=== PATIENT | female | born 1935 | race Caucasian/White ===

== ENCOUNTER 2023-03-30 12:10 | Outpatient (AMB) | payer MEDICARE, SELFPAY ==
--- NOTE | 2023-03-30 12:12 | MHC.OFFVIS ---
Intake Vital Signs 03/30/23 12:17 Height 5 ft 3 in Weight 171 lb BMI 30.3 Intake Visit Reasons: [employer]-Right knee pain Intake Note: Yesi is an 87 year old female who presents today as a new patient with complaints of right knee pain. Pt reports that she's been having pain since about November. She was previously seen with Robbie Castaneda at [facility] who ordered an MRI and injected the right knee. She found no relief from this injection and would like to discuss alternative therapies. Allergies No Known Allergies Allergy (Verified 03/30/23 12:22) HPI FRE[employer]-Right knee pain HPI Details Yesi is an 87 year old woman who presents for an MRI review of her right knee pain. She complains of some pain with daily activity. Her pain has been present for ~3-4 months. She reports having a walker at home that she uses occasionally. She reports having an injection done at [facility] when her MRI was ordered. She says she had no relief from this injection and wants to discuss alternative treatments She denies any falls or known injury. She says she is able to remain active and [facility] with water aerobics. Her pain has been improving in the last few weeks. She says she used to be a patient of Dr. Cook for several years. [facility] Surgical History (Updated 03/30/23 @ 12:26 by Mima Enamorado) H/O: hysterectomy Social History (Updated 03/30/23 @ 12:26 by Mima Enamorado) Patient Tobacco Use Status: Never used Tobacco Current occupational status: retired Review of Systems Const All systems reviewed & are unremarkable except as noted in HPI and below Physical Exam Vital Signs: BMI result Body Mass Index 30.3 Const General: no acute distress, alert and awake Orientation/consciousness: patient oriented x3 HEENT Head: Yes normocephalic and Yes atraumatic Eyes EOM: EOMs intact bilaterally Resp Effort & Inspection: normal respiratory effort and able to speak in complete sentences Cardio Jugular venous distension: no JVD Skin General skin exam: turgor normal Rashes: no rashes Neuro General: patient oriented x3 Extrem Other: Right Knee: Mild tenderness over medial compartment Full ROM Trace effusion - steinmans Walking comfortably Psych Appearance: grossly normal Affect: normal affect Attitude: cooperative Results Reviewed Results Reviewed: I personally reviewed relevant MR images Complex radial tear involving the posterior horn/root junction of the medial meniscus with bone marrow contusions involving the medial knee compartment Prepatellar bursitis Grade 1 MCL sprain Degenerative changes of the right knee, greatest in the medial tibiofemoral compartment. Assessment & Plan Assessment & Plan (1) Insufficiency fracture of medial condyle of femur: Code(s): M84.453A - Pathological fracture, unspecified femur, initial encounter for fracture Plan: This is an 87 year old woman with an insufficiency fracture of the right medial femoral condyle. She has some pain with daily activity, which has been improving over time. There is no intervention indicated at this time. She remains active with daily exercise and is not limited in her ADLs. She will follow up in 3 months, if her symptoms worsen. Plan Scribed for Francisco Barahona MD by Thomas Dickens, medical typist, on 03/30/23 at 1:05 PM, EST. Orders: Orders XR knee RT 2V Today M25.569 - Pain in unspecified knee XR knee standing BI Today M25.569 - Pain in unspecified knee Coding Level of Care Code New Pt Level 3 (68128) Diagnoses Insufficiency fracture of medial condyle of femur M84.453A
[2023-03-30 12:17] VITALS: BMI 30.3
== END 2023-03-30 13:16 | disposition home or self-care (01) ==
PROVIDERS: Visit Provider Orthopaedic Surgery
DX: M84.451A Pathological fracture, right femur, initial encounter for fracture (principal); S83.231A Complex tear of medial meniscus, current injury, right knee, initial encounter
CPT/HCPCS: 99203

== ENCOUNTER 2023-03-30 12:10 | Outpatient (REF) | payer MEDICARE, SELFPAY ==
--- NOTE | ~2023-03-30 | XR_ITS ---
EXAMINATION: XR AP STANDING BILATERAL KNEES XR KNEE, RIGHT CLINICAL INFORMATION: Pain in unspecified knee. COMPARISON: None available. TECHNIQUE: AP standing view of bilateral knees. Lateral and sunrise views of the right knee. FINDINGS: The bones are diffusely demineralized. RIGHT KNEE: Chondrocalcinosis in the medial and lateral compartments. Moderate joint effusion. Tiny posterior patellar and medial marginal osteophytes. Moderate medial joint space narrowing. Soft tissue calcifications are likely vascular. LEFT KNEE: Chondrocalcinosis in the medial and lateral compartments. Moderate medial joint space narrowing. Vascular calcifications in the soft tissues. There is a dominant 3.5 cm lobulated density in the soft tissues along the medial aspect of the tibia with multiple adjacent smaller radiodensities of indeterminate etiology and significance. Dedicated views of the left knee and correlation with clinical exam and history recommended for further evaluation. XR/XR knee standing BI IMPRESSION: 1. Advanced degenerative changes right knee. 2. Advanced degenerative changes on AP view of the left knee. 3. A 3.5 cm lobulated density in the soft tissues along the medial aspect of the tibia with multiple adjacent smaller radiodensities of indeterminate etiology and significance. Dedicated views of the left knee and correlation with clinical exam and history recommended for further evaluation. Additional imaging with CT scan or MRI should be considered for better visualization as these modalities are much more sensitive for detection of fracture or other underlying pathology.
--- NOTE | ~2023-03-30 | XR_ITS ---
EXAMINATION: XR AP STANDING BILATERAL KNEES XR KNEE, RIGHT CLINICAL INFORMATION: Pain in unspecified knee. COMPARISON: None available. TECHNIQUE: AP standing view of bilateral knees. Lateral and sunrise views of the right knee. FINDINGS: The bones are diffusely demineralized. RIGHT KNEE: Chondrocalcinosis in the medial and lateral compartments. Moderate joint effusion. Tiny posterior patellar and medial marginal osteophytes. Moderate medial joint space narrowing. Soft tissue calcifications are likely vascular. LEFT KNEE: Chondrocalcinosis in the medial and lateral compartments. Moderate medial joint space narrowing. Vascular calcifications in the soft tissues. There is a dominant 3.5 cm lobulated density in the soft tissues along the medial aspect of the tibia with multiple adjacent smaller radiodensities of indeterminate etiology and significance. Dedicated views of the left knee and correlation with clinical exam and history recommended for further evaluation. XR/XR knee RT 2V IMPRESSION: 1. Advanced degenerative changes right knee. 2. Advanced degenerative changes on AP view of the left knee. 3. A 3.5 cm lobulated density in the soft tissues along the medial aspect of the tibia with multiple adjacent smaller radiodensities of indeterminate etiology and significance. Dedicated views of the left knee and correlation with clinical exam and history recommended for further evaluation. Additional imaging with CT scan or MRI should be considered for better visualization as these modalities are much more sensitive for detection of fracture or other underlying pathology.
== END 2023-03-30 12:11 | disposition home or self-care (01) ==
LOC: HO.HOSX 12:10
PROVIDERS: Visit Provider Orthopaedic Surgery
DX: M84.452A Pathological fracture, left femur, initial encounter for fracture (principal)
CPT/HCPCS: 73560; 73565; 99202

== ENCOUNTER 2023-10-29 11:00 | Outpatient (AMB) | payer MEDICARE, SELFPAY ==
--- NOTE | 2023-10-29 11:03 | MHC.OFFVIS ---
Intake Intake Visit Reasons: OV - Rt Femur Insufficiency fx Intake Note: Yesi is an 88 year old female who presents today for a follow up of her right knee, she has a Right Medial Femoral Condyle Insufficiency Fracture. Patient reports that she is doing well, she has some pain when she over does it. She is doing exercises at the [facility] and is doing exercises. She complains of left shoulder pain, this has been ongoing for some time and limited ROM. She has had physical therapy for 6 months with good releif. She is asking for a physical therapy order. She also reports that she has hammer toe and is geting orthotics to correct this from a medical recruiter. Allergies No Known Allergies Allergy (Verified 03/30/23 12:22) HPI OV - Rt Femur Insufficiency fx HPI Details Yesi is an 88 year old woman who returns to discuss her insufficiency fracture of the right medial femoral condyle. In regards to her knee she says she is doing well and continues to perform exercises at home. She complains of left shoulder pain, which has been present for several months. She has done PT in the past, which she found helpful, and she would like a new PT order. PFSH Surgical History (Updated 03/30/23 @ 12:26 by EMI Norton) H/O: hysterectomy Social History (Updated 03/30/23 @ 12:26 by EMI Norton) Patient Tobacco Use Status: Never used Tobacco Current occupational status: retired Review of Systems Const All systems reviewed & are unremarkable except as noted in HPI and below Physical Exam Const General: no acute distress, alert and awake Orientation/consciousness: patient oriented x3 HEENT Head: Yes normocephalic and Yes atraumatic Eyes EOM: EOMs intact bilaterally Resp Effort & Inspection: normal respiratory effort and able to speak in complete sentences Cardio Jugular venous distension: no JVD Skin General skin exam: turgor normal Rashes: no rashes Neuro General: patient oriented x3 Extrem Other: No effusion right knee Minimal TTP MFC Psych Appearance: grossly normal Affect: normal affect Attitude: cooperative Results Reviewed Results Reviewed: 4-/5 EC ER to 35 deg bilaterally No effusion Assessment & Plan Assessment & Plan (1) Rotator cuff arthropathy of left shoulder: Code(s): M12.812 - Other specific arthropathies, not elsewhere classified, left shoulder Plan: PT for left shoulder RTC arthropathy (2) Insufficiency fracture of medial condyle of femur: Code(s): M84.453A - Pathological fracture, unspecified femur, initial encounter for fracture Plan: Improved with PT and time. Continue activity as tolerated Plan Prepared for Francisco Barahona MD by Thomas Dickens, medical assistant cardiology, on 10/29/23 at 11:10 AM, EST. Orders: Orders PT Evaluation and Treatment Today M12.812 - Other specific arthropathies, not elsewhere classified, left shoulder Coding Level of Care Code Est Pt Level 4 (87408) Diagnoses Rotator cuff arthropathy of left shoulder M12.812 Insufficiency fracture of medial condyle of femur M84.453A
== END 2023-10-29 11:39 | disposition home or self-care (01) ==
PROVIDERS: Visit Provider Orthopaedic Surgery
DX: M84.451A Pathological fracture, right femur, initial encounter for fracture (principal); M12.812 Other specific arthropathies, not elsewhere classified, left shoulder
CPT/HCPCS: 99213

== ENCOUNTER → 2023-10-29 11:00 | Outpatient (BNVA) | payer MEDICARE, SELFPAY | PROVIDERS: Visit Provider Orthopaedic Surgery | DX: M84.453D Pathological fracture, unspecified femur, subsequent encounter for fracture with routine healing (principal); M12.812 Other specific arthropathies, not elsewhere classified, left shoulder | CPT/HCPCS: 99212 ==

== ENCOUNTER 2023-12-24 10:00 | Outpatient (RCR) | payer MEDICARE, SELFPAY ==
--- NOTE | 2023-11-23 12:24 | MHC.PT.EP ---
[facility] [place] Office [place] Office [place] Office [address] [phone] F: [phone] F: [phone] F: [phone] F: [phone] Physical Therapy Plan of Care Date of Evaluation: 11/23/23 Date of Surgery: N/A Diagnosis: rotator cuff arthropathy of left shoulder (RL) Assessment: pt is an 88 y/o female presenting to physical therapy w/ referring diagnosis of rotator cuff arthropathy of left shoulder. Cervical screening done and did not seem to affect shoulder/arm symptoms. I am questioning more shoulder arthritis and potential rotator cuff insufficiency. There is a postural component to her pain as well. Impairments include pain, decreased range of motion, decreased strength, impaired functional mobility, impaired postural awareness, and altered ambulation mechanics. pt is a good candidate for skilled PT due to age, potential remediation of impairments, typical disease/condition progression and prognosis, comorbidities, and motivation. pt would benefit from skilled PT intervention to provide a tailored strengthening and stretching exercise program, functional training, gait training, postural re-training, neuromuscular re-education, modalities as needed for pain, equipment safety demonstration. Frequency and Duration: The patient will be seen 2x/wk for 4 wks Short Term Goals: pt will be I w/ HEP to promote self-management of condition. pt will improve L shoulder flexion by at least 10 degrees to promote ease in reaching for objects on higher shelves. Half-Way Goals: pt will improve L shoulder flexion and abduction strength by at least 1 MMT grade to promote ease in carrying groceries/purse. pt will report a statistically significant improvement in self-reported outcome measure, SPADI, to promote return to PLOF. Treatment Plan: Modalities to reduce pain, spasms and effusion. Manual therapy to restore motion and function. Therapeutic exercise to improve strength and flexibility. Neuromuscular re-education for posture and balance. Therapeutic activities to return to functional activities of daily living. Electronically signed by: Gissell Pierre PT, DPT Please sign and return to therapist. Thank you for your referral.
--- NOTE | 2023-12-28 15:10 | MHC.PT.DC ---
[facility] [place] Office [place] Office [place] Office [address] [facility] [phone] F: [phone] F: [phone] F: [phone] F: [phone] Physical Therapy Discharge Report Diagnosis: rotator cuff arthropathy of left shoulder (RL) Date of Surgery: N/A Date of Evaluation: 11/23/23 Date of Discharge: 12/28/23 Treatments to Date: 8 Cancellations to Date: 2 No Shows to Date: 0 Discharge Status: Improved Function Independent with HEP Patient Elected to Stop Discharge Summary: The patient overall has been reporting improved shoulder pain symptoms. She is independent with her home exercise program and feels she is ready for discharge to continue on her own. She is discharged per her request. Electronically signed by: Gissell Pierre PT, DPT Please sign and return to therapist. Thank you for your referral.
== END 2023-12-28 15:11 | disposition home or self-care (01) ==
LOC: HO.PT 10:00
PROVIDERS: PCP Internal Medicine; Visit Provider Orthopaedic Surgery
DX: M12.812 Other specific arthropathies, not elsewhere classified, left shoulder (principal)
CPT/HCPCS: 97110; 97140; 97162

== ENCOUNTER 2024-09-01 14:00 | Outpatient (RCR) | payer MEDICARE, SELFPAY ==
--- NOTE | 2024-08-02 12:12 | MHC.PT.EP ---
[facility] [place] Office [place] Office [place] Office [address] [phone] F: [phone] F: [phone] F: [phone] F: [phone] Physical Therapy Plan of Care Date of Evaluation: 08/01/24 Date of Surgery: Diagnosis: This is a 88 yo female presenting to skilled PT with a script for pathological fracture of medial condyle femur. Assessment: This is a 88 yo female presenting to skilled PT with a script for pathological fracture of medial condyle femur. Patient reporting ongoing knee pain however reports that she is really here to work on her balance (does not want a TKR, sees [facility] ortho). She does endorse B knee pain at times but it is not causing her functional issues. She reports unbalanced with ambulation moreso due to age. Denies dizziness. She walks with a straight cane occasionally. 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 Assessment reveals pain that ranges from up to a 4/10 at the worst. Patient demos decreased knee and ankle ROM, strength of hips and ankles, decreased gait pattern and impaired balance as noted by DGI and Ann Marie SOPT. Based on functional limitations, impaired QOL and pain tolerance patient is a good candidate for skilled PT 2x/wk for 4wks. Frequency and Duration: The patient will be seen 2x/wk for 4wks Short Term Goals: Pt will demonstrate improved postural awareness and understanding of core engagement with supine and standing tasks without cues throughout session to improve balance safety as well as improve strength in 2 weeks. Pt will continue to reinforce precautions, sitting, standing and ADL modifications with proper body mechanics and prevent falls in 2 wks. Mcc Goals: Pt will demonstrate improved outcome measure by 5 points in 4 weeks for improved functional mobility. Pt will demonstrate ability to bend and lift WNL min to no pain for household tasks in 4 wks. Pt will be I in HEP and compliant in 4wks Pt will be able to perform sit<>stand without UE assist from varying chair heights in 4 wks Treatment Plan: Modalities to reduce pain, spasms and effusion. Manual therapy to restore motion and function. Therapeutic exercise to improve strength and flexibility. Neuromuscular re-education for posture and balance. Therapeutic activities to return to functional activities of daily living. Electronically signed by: Liudmila Gilmore PT Please sign and return to therapist. Thank you for your referral.
--- NOTE | 2024-09-30 11:31 | MHC.PT.DC ---
[facility] [place] Office [place] Office [place] Office [address] [phone] F: [phone] F: [phone] F: [phone] F: [phone] Physical Therapy Discharge Report Diagnosis: This is a 88 yo female presenting to skilled PT with a script for pathological fracture of medial condyle femur. Date of Surgery: Date of Evaluation: 08/01/24 Date of Discharge: 09/30/24 Treatments to Date: 6 Cancellations to Date: 0 No Shows to Date: 0 Discharge Status: Achieved Goals Improved Function Independent with HEP Patient Elected to Stop Discharge Summary: Patient still struggles with getting out of the chair however with slight tactile cue at the upper back she is able to complete this without her hands. We did talk about the safety of using her hands and assessing surfaces as well as adapting her house. She has a good HEP to continue on her own and does not have any pain. She had one more scheduled appointment however was hospitalized and her chart here was closed after 30 days of not being at the facility. Electronically signed by: Liudmila Gilmore PT Please sign and return to therapist. Thank you for your referral.
== END 2024-09-30 11:31 | disposition home or self-care (01) ==
LOC: HO.PTCHIC 14:00
PROVIDERS: PCP Internal Medicine; Visit Provider Orthopaedic Surgery
DX: M25.562 Pain in left knee (principal); M25.561 Pain in right knee; M84.453D Pathological fracture, unspecified femur, subsequent encounter for fracture with routine healing
CPT/HCPCS: 97110; 97112; 97162

== ENCOUNTER 2024-12-08 14:00 | Outpatient (RCR) | payer MEDICARE, SELFPAY | END 2025-01-09 12:49 | disposition home or self-care (01) | LOC: HO.PTCHIC 14:00 | PROVIDERS: PCP Internal Medicine; Visit Provider Internal Medicine | DX: R26.89 Other abnormalities of gait and mobility (principal) | CPT/HCPCS: 97110; 97112; 97161; 97162 ==

== ENCOUNTER 2025-04-20 10:43 | Outpatient (RCR) | payer MEDICARE, SELFPAY | END 2025-05-25 06:50 | disposition home or self-care (01) | LOC: HO.PTCHIC 10:43 | PROVIDERS: PCP Internal Medicine; Visit Provider Internal Medicine | DX: M54.50 Low back pain, unspecified (principal) | CPT/HCPCS: 97110; 97161 ==